=== PATIENT | female | born 1955 | race Caucasian/White ===

== ENCOUNTER → 2021-10-29 | Outpatient (CLI) | payer MEDICARE, BC ==
[2021-10-29 13:23] VITALS: BP 168/81; PULSE 81; TEMP 98.4; BMI 28.9
--- NOTE | 2021-11-12 15:21 | P.HPBAR ---
Bariatric H&P - History & Physicial H&P Date: 10/29/21 History & Physicial: Visit/CC: lap band problems Patient initial contact: Initial weight: Initial weight in pounds: Height: 5 ft 5.75 in Initial BMI: Last weight: Current weight: 80.739 kg Current weight in pounds: 178.00 Current BMI: 28.9 [place] body weight (based on NIH guidelines): 58.4 kg Excess body weight loss: The patient is a 66 year-old F who presents for Bariatric Assessment. Patient resents today for LAP-BAND adjustment. She has some complaints of dysphagia. Her current weight is 170 pounds. Past Medical History History of Any Multi-Drug Resistant Organisms: None Reported Smoking Status: Never smoker Surgical - Exam Vital Signs Temp Pulse BP 98.4 F 81 168/81 10/29/21 13:14 10/29/21 13:14 10/29/21 13:14 - General well developed, well nourished, no distress - Eyes PERRL - ENT normal pinna - Neck no masses - Respiratory normal expansion - Cardiovascular Rhythm: regular - Abdomen Abdomen: soft, non tender Bariatric Assessment & Plan Plan: Patient's LAP-BAND was adjusted. She had 1 mL removed from the band. She will follow-up in 4 weeks. Bariatric Checklist Checklist: Plan: Checklist: EGD: 1. Hiatal hernia: 2. H. Pylori: HgbA1c: Vitamin D: Smoking: Primary care physician referral: Dr. Alfonso Psychiatry clearance: Cardiology clearance: Sleep study: Diet journal: VTE risk score: VTE risk level: Rehab needs at discharge:
== END ==
LOC: BARWHC3 12:57
PROVIDERS: ATTEND Surgery
DX: E66.01 Morbid (severe) obesity due to excess calories (principal); Z46.51 Encounter for fitting and adjustment of gastric lap band
CPT/HCPCS: 99212

== ENCOUNTER → 2021-11-12 | Outpatient (CLI) | payer MEDICARE, BC ==
[2021-11-12 13:43] VITALS: BP 161/83; PULSE 84; TEMP 98; BMI 29.7
--- NOTE | 2021-11-12 14:51 | P.HPBAR ---
Bariatric H&P - History & Physicial H&P Date: 11/12/21 History & Physicial: Visit/CC: lap band f/u Patient initial contact: Initial weight: Initial weight in pounds: Height: 5 ft 5.75 in Initial BMI: Last weight: Current weight: 83.007 kg Current weight in pounds: 183.00 Current BMI: 29.7 [place] body weight (based on NIH guidelines): 58.4 kg Excess body weight loss: The patient is a 66 year-old F who presents for Bariatric Assessment. Patient resents today for bariatric follow. She's requesting a fill of her LAP-BAND. She currently is hungry. Past Medical History Past Medical History: Hypertension History of Any Multi-Drug Resistant Organisms: None Reported Past Surgical History: Bariatric Surgery, Section, Joint Replacement, Orthopedic Surgery Additional Past Surgical History / Comment(s): lap band 2010. ganga in left big toe. left knee replacement 2010. left wrist cyst removed, right thumb and finger cyst removed. right knee replacement 2019. eye surgery 2019 and cataract surgery 2019 Past Anesthesia/Blood Transfusion Reactions: Previous Problems w/ Anesthesia, Postoperative Nausea & Vomiting (PONV) Past Psychological History: No Psychological Hx Reported Smoking Status: Never smoker Past Alcohol Use History: Occasional Past Drug Use History: None Reported Surgical - Exam Vital Signs Temp Pulse BP 98 F 84 161/83 11/12/21 13:37 11/12/21 13:37 11/12/21 13:37 - General well developed, well nourished, no distress - Eyes PERRL - ENT normal pinna - Neck no masses - Respiratory normal expansion - Cardiovascular Rhythm: regular - Abdomen Abdomen: soft, non tender Bariatric Assessment & Plan Plan: Resolving morbid obesity. Patient's LAP-BAND was adjusted. She had 0.5 mL added the band. She currently is 3.5 mL Initial follow-up in 4 weeks. Bariatric Checklist Checklist: Plan: Checklist: EGD: 1. Hiatal hernia: 2. H. Pylori: HgbA1c: Vitamin D: Smoking: Primary care physician referral: Dr. Alfonso Psychiatry clearance: Cardiology clearance: Sleep study: Diet journal: VTE risk score: VTE risk level: Rehab needs at discharge:
== END ==
LOC: BARWHC3 12:54
PROVIDERS: ATTEND Surgery
DX: E66.01 Morbid (severe) obesity due to excess calories (principal); Z46.51 Encounter for fitting and adjustment of gastric lap band; Z68.29 Body mass index [BMI] 29.0-29.9, adult; I10 Essential (primary) hypertension
CPT/HCPCS: 99212

== ENCOUNTER → 2021-12-17 | Outpatient (CLI) | payer MEDICARE, BC ==
[2021-12-17 13:09] VITALS: BP 145/84; PULSE 75; RESP 16; TEMP 98.2; BMI 29.7
--- NOTE | 2021-12-17 14:31 | P.HPBAR ---
Bariatric H&P - History & Physicial H&P Date: 12/17/21 History & Physicial: Visit/CC: Band Adj/Pursuing [place]anni Patient initial contact: Initial weight: 115.666 kg Initial weight in pounds: 255.00 Height: 5 ft 5.75 in Initial BMI: 41.4 Last weight: Current weight: 83.007 kg Current weight in pounds: 183.00 Current BMI: 29.7 [place] body weight (based on NIH guidelines): 58.4 kg Excess body weight loss: 57.0% The patient is a 66 year-old F who presents for Bariatric Assessment. Patient presents today for LAP-BAND follow-up. She's requesting a fill of her band. She is currently hungry. Past Medical History Past Medical History: Hypertension History of Any Multi-Drug Resistant Organisms: None Reported Past Surgical History: Bariatric Surgery, Section, Joint Replacement, Orthopedic Surgery Additional Past Surgical History / Comment(s): lap band 2010. ganga in left big toe. left knee replacement 2010. left wrist cyst removed, right thumb and finger cyst removed. right knee replacement 2019. 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 She had 0.5 mL added to the band. She currently has 4 mL in the band. She will follow-up in 4 weeks. Patient's panniculus was documented. We'll attempt to obtain insurance authorization for panniculectomy Bariatric Checklist Checklist: Plan: Checklist: EGD: 1. Hiatal hernia: 2. H. Pylori: HgbA1c: Vitamin D: Smoking: Primary care physician referral: Dr. Alfonso Psychiatry clearance: Cardiology clearance: Sleep study: Diet journal: VTE risk score: VTE risk level: Rehab needs at discharge:
== END ==
LOC: BARWHC3 12:41
PROVIDERS: ATTEND Surgery
DX: Z98.84 Bariatric surgery status (principal); E66.9 Obesity, unspecified; Z68.29 Body mass index [BMI] 29.0-29.9, adult
CPT/HCPCS: 99211

== ENCOUNTER → 2022-01-28 | Outpatient (CLI) | payer MEDICARE, BC ==
[2022-01-28 12:58] VITALS: BP 127/82; PULSE 99; TEMP 97.8; BMI 29.5
--- NOTE | 2022-01-28 13:14 | P.HPBAR ---
Bariatric H&P - History & Physicial H&P Date: 01/28/22 History & Physicial: Visit/CC: lap band follow up Patient initial contact: Initial weight: 115.666 kg Initial weight in pounds: 255.00 Height: 5 ft 5.75 in Initial BMI: 41.4 Last weight: Current weight: 82.554 kg Current weight in pounds: 182.00 Current BMI: 29.5 [place] body weight (based on NIH guidelines): 58.4 kg Excess body weight loss: 57.8% The patient is a 66 year-old F who presents for Bariatric Assessment. Patient presents today for bariatric follow-up. She has no significant complaints. She does have issues with a chronic rash due to her panniculus. She's had some minimal GERD. Past Medical History Past Medical History: Hypertension History of Any Multi-Drug Resistant Organisms: None Reported Past Surgical History: Bariatric Surgery, Section, Joint Replacement, Orthopedic Surgery Additional Past Surgical History / Comment(s): lap band 2010. ganga in left big toe. left knee replacement 2010. left wrist cyst removed, right thumb and finger cyst removed. right knee replacement 2019. eye surgery 2019 and cataract surgery 2019 Past Anesthesia/Blood Transfusion Reactions: Previous Problems w/ Anesthesia, Postoperative Nausea & Vomiting (PONV) Past Psychological History: No Psychological Hx Reported Smoking Status: Never smoker Past Alcohol Use History: Occasional Past Drug Use History: None Reported Surgical - Exam Vital Signs Temp Pulse BP 97.8 F 99 127/82 01/28/22 12:54 01/28/22 12:54 01/28/22 12:54 - General well developed, well nourished, no distress - Eyes PERRL - ENT normal pinna - Neck no masses - Respiratory normal expansion - Cardiovascular Rhythm: regular - Abdomen Large panniculus with evidence of chronic skin irritation Abdomen: soft, non tender Bariatric Assessment & Plan Plan: Patient is doing well from a LAP-BAND standpoint. Her GERD is minimal will be observed. Patient will attempt to have authorization for panniculectomy performed. Bariatric Checklist Checklist: Plan: Checklist: EGD: 1. Hiatal hernia: 2. H. Pylori: HgbA1c: Vitamin D: Smoking: Primary care physician referral: Dr. Alfonso Psychiatry clearance: Cardiology clearance: Sleep study: Diet journal: VTE risk score: VTE risk level: Rehab needs at discharge:
== END ==
LOC: BARWHC3 12:42
PROVIDERS: ATTEND Surgery
DX: Z48.815 Encounter for surgical aftercare following surgery on the digestive system (principal); Z98.84 Bariatric surgery status; E66.01 Morbid (severe) obesity due to excess calories; Z68.29 Body mass index [BMI] 29.0-29.9, adult
CPT/HCPCS: 99211

== ENCOUNTER → 2022-04-03 | Outpatient (CLI) | payer MEDICARE, BC ==
[2022-04-03 18:31] LABS: Basophils # (A) 0.08 X 10*3/uL (0.00-0.10); Basophils % (A) 1.3 %; Eosinophils # (A) 0.21 X 10*3/uL (0.04-0.35); Eosinophils % (A) 3.5 %; HCT 43.1 % (37.2-46.3); HGB 13.5 g/dL (12.0-15.0); Immature Grans, Automated 0.2 %; Lymphocytes # (A) 2.54 X 10*3/uL (0.90-5.00); Lymphocytes % (A) 42.6 %; MCH 28.4 pg (27.0-32.0); MCHC 31.3 g/dL (32.0-37.0); MCV 90.5 fL (80.0-97.0); Mean Platelet Volume 10.8 fL (9.5-12.2); Monocytes # (A) 0.56 X 10*3/uL (0.20-1.00); Monocytes % (A) 9.4 %; NRBC Per 100 WBC 0 /100 WBCS (0.0-0.0); Neutrophils # (A) 2.56 X 10*3/uL (1.80-7.70); Platelet Count 284 X 10*3/uL (140-440); RBC 4.76 X 10*6/uL (4.10-5.20); RDW 13.7 % (11.5-14.5); WBC 5.96 X 10*3/uL (4.50-10.00)
[2022-04-03 18:33] LABS: Albumin 4.4 g/dL (3.8-4.9); Albumin/Globulin Ratio 2.13 (1.60-3.17); Anion Gap 9.9 mmol/L (10.00-18.00); BUN/Creat Ratio 13.36 Ratio (12.00-20.00); Blood Urea Nitrogen 10.1 mg/dL (9.0-27.0); Calcium 9.7 mg/dL (8.7-10.3); Carbon Dioxide 27.8 mmol/L (20.0-27.5); Globulin 2.1 g/dL (1.6-3.3); Non-African American GFR(CKD) 81.1 (60.0-200.0); Potassium 4.5 mmol/L (3.5-5.5); Total Bilirubin 0.4 mg/dL (0.30-1.20); Total Protein 6.5 g/dL (6.2-8.2)
== END | disposition home or self-care (01) ==
LOC: LABPAT 11:07
PROVIDERS: ATTEND Surgery
DX: Z01.818 Encounter for other preprocedural examination (principal); I49.1 Atrial premature depolarization; I23.1 Atrial septal defect as current complication following acute myocardial infarction; R94.31 Abnormal electrocardiogram [ECG] [EKG]
CPT/HCPCS: 80053; 85025; 93005

== ENCOUNTER → 2022-05-06 | Outpatient (CLI) | payer MEDICARE, BC ==
[2022-05-06 14:00] VITALS: BP 147/85; PULSE 78; TEMP 98.5; BMI 29.4
--- NOTE | 2022-05-21 11:00 | P.HPBAR ---
Bariatric H&P - History & Physicial H&P Date: 05/06/22 History & Physicial: Visit/CC: edmund F/U Patient initial contact: Initial weight: 115.666 kg Initial weight in pounds: 255.00 Height: 5 ft 5.75 in Initial BMI: 41.4 Last weight: Current weight: 82.1 kg Current weight in pounds: 181.00 Current BMI: 29.4 [place] body weight (based on NIH guidelines): 58.4 kg Excess body weight loss: 58.6% The patient is a 67 year-old F who presents for Bariatric Assessment. Patient resents today for panniculectomy follow-up. She's doing quite well. She's had minimal drainage from her KIM drains. Past Medical History Past Medical History: Hypertension Additional Past Medical History / Comment(s): allergies. History of Any Multi-Drug Resistant Organisms: None Reported Past Surgical History: Bariatric Surgery, Section, Joint Replacement, Orthopedic Surgery Additional Past Surgical History / Comment(s): lap band 2010. ganga in left big toe. left knee replacement 2010. left wrist cyst removed, right thumb and finger cyst removed. right knee replacement 2019. Panniculectomy 04/24/22. eye surgery 2019 and cataract surgery 2019 Past Anesthesia/Blood Transfusion Reactions: Previous Problems w/ Anesthesia, Postoperative Nausea & Vomiting (PONV) Past Psychological History: No Psychological Hx Reported Smoking Status: Never smoker Past Alcohol Use History: Occasional Past Drug Use History: None Reported Surgical - Exam Vital Signs Temp Pulse BP 98.5 F 78 147/85 05/06/22 13:56 05/06/22 13:56 05/06/22 13:56 - General well developed, well nourished, no distress - Eyes PERRL - ENT normal pinna - Neck no masses - Respiratory normal expansion - Cardiovascular Rhythm: regular - Abdomen Abdomen: soft, non tender Bariatric Assessment & Plan Plan: The patient's KIM drains removed. She'll follow-up in 4 weeks. Bariatric Checklist Checklist: Plan: Checklist: EGD: 1. Hiatal hernia: 2. H. Pylori: HgbA1c: Vitamin D: Smoking: Primary care physician referral: Dr. Alfonso Psychiatry clearance: Cardiology clearance: Sleep study: Diet journal: VTE risk score: VTE risk level: Rehab needs at discharge:
== END ==
LOC: BARWHC3 13:18
PROVIDERS: ATTEND Surgery
DX: E66.01 Morbid (severe) obesity due to excess calories (principal); I10 Essential (primary) hypertension; Z68.29 Body mass index [BMI] 29.0-29.9, adult; Z98.890 Other specified postprocedural states; Z88.0 Allergy status to penicillin
CPT/HCPCS: 99212

== ENCOUNTER → 2022-05-13 | Outpatient (CLI) | payer MEDICARE, BC ==
[2022-05-13 12:51] VITALS: BP 133/85; PULSE 77; TEMP 98.1; BMI 29.5
--- NOTE | 2022-05-21 10:45 | P.HPBAR ---
Bariatric H&P - History & Physicial H&P Date: 05/13/22 History & Physicial: Visit/CC: edmund F/U Patient initial contact: Initial weight: 115.666 kg Initial weight in pounds: 255.00 Height: 5 ft 5.75 in Initial BMI: 41.4 Last weight: Current weight: 82.554 kg Current weight in pounds: 182.00 Current BMI: 29.5 [place] body weight (based on NIH guidelines): 58.4 kg Excess body weight loss: 57.8% Patient resents today for bariatric follow-up. Patient has undergone recently. Patient has had some minimal GERD and dysphagia. Her BMI is 29. She states that her KIM drains have decreased in output. Past Medical History Past Medical History: Hypertension Additional Past Medical History / Comment(s): allergies. History of Any Multi-Drug Resistant Organisms: None Reported Past Surgical History: Bariatric Surgery, Section, Joint Replacement, Orthopedic Surgery Additional Past Surgical History / Comment(s): lap band 2010. ganga in left big toe. left knee replacement 2010. left wrist cyst removed, right thumb and finger cyst removed. right knee replacement 2019. Panniculectomy 04/24/22. eye surgery 2019 and cataract surgery 2019 Past Anesthesia/Blood Transfusion Reactions: Previous Problems w/ Anesthesia, Postoperative Nausea & Vomiting (PONV) Past Psychological History: No Psychological Hx Reported Smoking Status: Never smoker Past Alcohol Use History: Occasional Past Drug Use History: None Reported Surgical - Exam Vital Signs Temp Pulse BP 98.1 F 77 133/85 05/13/22 12:44 05/13/22 12:44 05/13/22 12:44 - General well developed, well nourished, no distress - Eyes PERRL - ENT normal pinna - Neck no masses - Respiratory normal expansion - Cardiovascular Rhythm: regular - Abdomen Abdomen: soft, non tender Bariatric Assessment & Plan Plan: The patient's KIM drains were removed. Her GERD is minimal observed. She'll follow-up in 4 weeks. Bariatric Checklist Checklist: Plan: Checklist: EGD: 1. Hiatal hernia: 2. H. Pylori: HgbA1c: Vitamin D: Smoking: Primary care physician referral: Dr. Alfonso Psychiatry clearance: Cardiology clearance: Sleep study: Diet journal: VTE risk score: VTE risk level: Rehab needs at discharge:
== END ==
LOC: BARWHC3 12:21
PROVIDERS: ATTEND Surgery
DX: E66.01 Morbid (severe) obesity due to excess calories (principal); K21.9 Gastro-esophageal reflux disease without esophagitis; I10 Essential (primary) hypertension; Z68.29 Body mass index [BMI] 29.0-29.9, adult; Z88.0 Allergy status to penicillin
CPT/HCPCS: 99212

== ENCOUNTER → 2022-06-10 | Outpatient (CLI) | payer MEDICARE, BC ==
[2022-06-10 13:48] VITALS: BP 142/76; PULSE 72; TEMP 98.1; BMI 29.4
--- NOTE | 2022-06-10 13:48 | P.HPBAR ---
Bariatric H&P - History & Physicial H&P Date: 06/10/22 History & Physicial: Visit/CC: Patient initial contact: Initial weight: 115.666 kg Initial weight in pounds: Height: 5 ft 5.75 in Initial BMI: Last weight: Current weight: 82.1 kg Current weight in pounds: Current BMI: [place] body weight (based on NIH guidelines): Excess body weight loss: The patient is a 67 year-old F who presents for Bariatric Assessment.patient presents today for bariatric follow-up. She has minimal complaints of GERD. She is healing well from her previous panniculectomy about 2 months ago. She's had some complaints of right upper quadrant pain. Past Medical History Past Medical History: Hypertension Additional Past Medical History / Comment(s): allergies. History of Any Multi-Drug Resistant Organisms: None Reported Past Surgical History: Bariatric Surgery, Section, Joint Replacement, Orthopedic Surgery Additional Past Surgical History / Comment(s): lap band 2010. ganga in left big toe. left knee replacement 2010. left wrist cyst removed, right thumb and finger cyst removed. right knee replacement 2019. Panniculectomy 04/24/22. eye surgery 2019 and cataract surgery 2019 Past Anesthesia/Blood Transfusion Reactions: Previous Problems w/ Anesthesia, Postoperative Nausea & Vomiting (PONV) Past Psychological History: No Psychological Hx Reported Smoking Status: Never smoker Past Alcohol Use History: Occasional Past Drug Use History: None Reported Surgical - Exam - General well developed, well nourished, no distress - Eyes PERRL - ENT normal pinna, normal nares - Neck no masses - Respiratory normal expansion - Cardiovascular Rhythm: regular - Abdomen Abdomen: soft, non tender Bariatric Assessment & Plan Plan: patient's GERD is minimal bleeding observed. She'll be scheduled for an ultrasound developed cholelithiasis for her right upper quadrant pain. She'll follow-up in 4 weeks. Bariatric Checklist Checklist: Plan: Checklist: EGD: 1. Hiatal hernia: 2. H. Pylori: HgbA1c: Vitamin D: Smoking: Primary care physician referral: Dr. Alfonso Psychiatry clearance: Cardiology clearance: Sleep study: Diet journal: VTE risk score: VTE risk level: Rehab needs at discharge:
== END ==
LOC: BARWHC3 12:51
PROVIDERS: ATTEND Surgery
DX: E66.01 Morbid (severe) obesity due to excess calories (principal); K21.9 Gastro-esophageal reflux disease without esophagitis; I10 Essential (primary) hypertension; Z88.0 Allergy status to penicillin; R10.11 Right upper quadrant pain; Z98.890 Other specified postprocedural states
CPT/HCPCS: 99211

== ENCOUNTER → 2022-06-25 | Outpatient (CLI) | payer MEDICARE, BC ==
--- NOTE | 2022-06-25 16:40 | US ---
EXAMINATION TYPE: US gallbladder DATE OF EXAM: 06/25/2022 COMPARISON: NONE CLINICAL INDICATION: Female, 67 years old with history of R10.11 RIGHT UPPER QUADRANT PAIN; ruq pain after abdominal surgery 8 weeks ago TECHNIQUE: Multiple sonographic images of the right upper quadrant are obtained. FINDINGS: EXAM MEASUREMENTS: Liver Length: 15.5 cm Gallbladder Wall: 0.2 cm CBD: 0.4 cm Right Kidney: 8.7 x 3.5 x 4.1 cm Pancreas: not seen due to bowel Liver: intercostal view Gallbladder: wnl Evidence for sonographic Mansfield's sign: yes CBD: wnl Right Kidney: bowel gas limits study, estimated size due to bowel gas obscuring IMPRESSION: Gallbladder is mildly distended without wall thickening or pericholecystic fluid. The market development analyst did suggest a positive sonographic Mansfield sign correlate with nuclear medicine HIDA scan.
== END | disposition home or self-care (01) ==
LOC: RADUSWWP 15:15
PROVIDERS: ATTEND Surgery
DX: K82.8 Other specified diseases of gallbladder (principal); R10.11 Right upper quadrant pain
CPT/HCPCS: 76705

== ENCOUNTER → 2022-07-15 | Outpatient (CLI) | payer MEDICARE, BC ==
--- NOTE | 2022-07-15 09:07 | NM ---
Nuclear medicine hepatobiliary scan. HISTORY: Pain. DOSAGE: The patient received 8 0z Ensure plus and 4.5 mCi of Technetium 99m Choletec. FINDINGS: There is normal hepatic extraction. The gallbladder is seen by 15 minutes. There is bilia ry to bowel clearance by 50 minutes. Ejection fraction is 91%. IMPRESSION: 1. No evidence of cholecystitis. 2. Ejection fraction of 91% can occasionally be associated with hyperdynamic gallbladder.
== END | disposition home or self-care (01) ==
LOC: RADNMMAIN 06:52
PROVIDERS: ATTEND Surgery
DX: R10.11 Right upper quadrant pain (principal)
CPT/HCPCS: 78227; A9537; J2805

== ENCOUNTER → 2022-07-15 | Outpatient (CLI) | payer MEDICARE, BC ==
[2022-07-15 13:05] VITALS: BP 143/84; PULSE 82; TEMP 98.1; BMI 29.9
--- NOTE | 2022-08-06 11:41 | P.HPBAR ---
Bariatric H&P - History & Physicial H&P Date: 07/15/22 History & Physicial: Visit/CC: hida scan F/U Patient initial contact: Initial weight: 115.666 kg Initial weight in pounds: 255.00 Height: 5 ft 5.75 in Initial BMI: 41.4 Last weight: Current weight: 83.461 kg Current weight in pounds: 184.00 Current BMI: 29.9 [place] body weight (based on NIH guidelines): 58.4 kg Excess body weight loss: 56.2% The patient is a 67 year-old F who presents for Bariatric Assessment. Patient presents today for follow-up. She is had complaints of pain. Her HIDA scan shows evidence of biliary dysfunction. Past Medical History Past Medical History: Hypertension Additional Past Medical History / Comment(s): allergies. History of Any Multi-Drug Resistant Organisms: None Reported Past Surgical History: Bariatric Surgery, Section, Joint Replacement, Orthopedic Surgery Additional Past Surgical History / Comment(s): lap band 2010. ganga in left big toe. left knee replacement 2010. left wrist cyst removed, right thumb and finger cyst removed. right knee replacement 2019. Panniculectomy 04/24/22. eye surgery 2019 and cataract surgery 2019 Past Anesthesia/Blood Transfusion Reactions: Previous Problems w/ Anesthesia, Postoperative Nausea & Vomiting (PONV) Past Psychological History: No Psychological Hx Reported Smoking Status: Never smoker Past Alcohol Use History: Occasional Past Drug Use History: None Reported Surgical - Exam Vital Signs Temp Pulse BP 98.1 F 82 143/84 07/15/22 13:02 07/15/22 13:02 07/15/22 13:02 - General well developed, well nourished, no distress - Eyes PERRL - ENT normal pinna - Neck no masses - Respiratory normal expansion - Cardiovascular Rhythm: regular - Abdomen Abdomen: soft, non tender Bariatric Assessment & Plan Plan: Right upper quadrant Biliary dysfunction Patient will be scheduled for laparoscopic cholecystectomy. Bariatric Checklist Checklist: Plan: Checklist: EGD: 1. Hiatal hernia: 2. H. Pylori: HgbA1c: Vitamin D: Smoking: Primary care physician referral: Dr. Alfonso Psychiatry clearance: Cardiology clearance: Sleep study: Diet journal: VTE risk score: VTE risk level: Rehab needs at discharge:
== END ==
LOC: BARWHC3 12:42
PROVIDERS: ATTEND Surgery
DX: E66.01 Morbid (severe) obesity due to excess calories (principal); I10 Essential (primary) hypertension; Z68.29 Body mass index [BMI] 29.0-29.9, adult; R10.11 Right upper quadrant pain; K83.9 Disease of biliary tract, unspecified; Z98.890 Other specified postprocedural states; Z88.0 Allergy status to penicillin
CPT/HCPCS: 99211

== ENCOUNTER 2022-08-05 06:01 | Day surgery (SDC) | payer MEDICARE, BC ==
[2022-08-01 13:43] VITALS: BMI 29.1
[2022-08-05] MEDS ORDERED: ONDANSETRON 4 MG/2 ML VIAL IVP ONE (06:40)
[2022-08-05] MEDS ORDERED: LACTATED RINGERS 1,000 ML IV SCH (06:40)
[2022-08-05] MEDS ORDERED: LIDOCAINE 1% (10MG/ML) FOR IV START INTRADERMA PRN (06:40)
[2022-08-05] MEDS ORDERED: HYDROmorphone 0.5 MG/0.5 ML SYRINGE IVP PRN (06:40)
[2022-08-05] MEDS ORDERED: DEXAMETHASONE SOD PHOSPHATE 4 MG/ML 1 ML VIAL IV ONE (06:40)
[2022-08-05] MEDS ORDERED: MIDAZOLAM 2 MG/2 ML VIAL IV PRN (06:40)
[2022-08-05] MEDS ORDERED: HEPARIN SODIUM,PORCINE/PF 5,000 UNIT/0.5 ML SYRINGE SQ ONE (07:15)
[2022-08-05] MEDS ORDERED: SCOPOLAMINE 1 MG/72 HR PATCH TRANSDERM ONE (07:18)
[2022-08-05] MEDS ORDERED: ROCURONIUM 10 MG/ML (5 ML VIAL) IV ONE (07:40)
[2022-08-05] MEDS ORDERED: KETOROLAC 15 MG/ML 1 ML VIAL ONE (07:40)
[2022-08-05] MEDS ORDERED: fentaNYL (PF) 50 MCG/ML 2 ML AMP ONE (07:40)
[2022-08-05] MEDS ORDERED: GLYCOPYRROLATE 0.2 MG/ML 2 ML VIAL ONE (07:40)
[2022-08-05] MEDS ORDERED: PROPOFOL 10 MG/ML 20 ML VIAL IV ONE (07:40)
[2022-08-05] MEDS ORDERED: PHENYLEPHRINE-0.9% NACL SYG 1,000 MCG/10 ML SYRINGE ONE (07:40)
[2022-08-05] MEDS ORDERED: SUCCINYLCHOLINE CHLORIDE 200 MG/10 ML VIAL IV ONE (07:40)
[2022-08-05] MEDS ORDERED: MIDAZOLAM 2 MG/2 ML VIAL ONE (07:40)
[2022-08-05] MEDS ORDERED: NEOSTIGMINE 1 MG/ML 10 ML VIAL ONE (07:40)
[2022-08-05] MEDS ORDERED: BUPIVACAINE (PF) 0.25% 30 ML VIAL SQ ONE ×2 (07:41→08:07)
[2022-08-05 08:41] VITALS: TEMP 97.2
--- NOTE | 2022-08-05 08:44 | P.GSHP ---
History of Present Illness H&P Date: 08/05/22 Chief Complaint: Right upper quadrant pain This a 59-year-old female who presents today for laparoscopic cholestatic. Patient's had complaints of right quadrant pain. Her recent HIDA scan shows a hyperdynamic gallbladder with an elevated ejection fraction. Past Medical History Past Medical History: Hypertension Additional Past Medical History / Comment(s): Allergies. History of Any Multi-Drug Resistant Organisms: None Reported Past Surgical History: Bariatric Surgery, Section, Joint Replacement, Orthopedic Surgery Additional Past Surgical History / Comment(s): Lap band 2010, ganga in left big toe, bilateral knee replacements, left wrist cyst removed, right thumb and finger cyst removed, panniculectomy/incisional hernia repair 04/24/22, eye surgery, cataract surgery. Past Anesthesia/Blood Transfusion Reactions: Previous Problems w/ Anesthesia, Motion Sickness, Postoperative Nausea & Vomiting (PONV) Additional Past Anesthesia/Blood Transfusion Reaction / Comment(s): Slow to wake up from anesthesia. Past Psychological History: No Psychological Hx Reported Smoking Status: Never smoker Past Alcohol Use History: Occasional Past Drug Use History: None Reported - Past Family History Father Family Medical History: Cancer Additional Family Medical History / Comment(s): Lung cancer. Medications and Allergies Home Medications Medication Instructions Recorded Confirmed Type Cetirizine HCl [Zyrtec] 10 mg PO DAILY 10/29/21 08/01/22 History Zolpidem [Ambien] 5 mg PO HS PRN 10/29/21 08/01/22 History lisinopriL [Zestril] 10 mg PO QAM 10/29/21 08/01/22 History Cholecalciferol [Vitamin D3 (25 100 mcg PO DAILY 04/10/22 08/01/22 History Mcg = 1000 Iu)] Allergies Allergy/AdvReac Type Severity Reaction Status Date / Time Penicillins Allergy Anaphylaxis Verified 08/05/22 06:45 Surgical - Exam Vital Signs Temp Pulse Resp BP Pulse Ox 97.5 F L 73 16 142/86 100 08/05/22 06:47 08/05/22 06:47 08/05/22 06:47 08/05/22 06:47 08/05/22 06:47 - General well developed, well nourished, no distress - Eyes PERRL - ENT normal pinna - Neck no masses - Respiratory normal expansion - Cardiovascular Rhythm: regular - Abdomen Abdomen: soft, non tender Assessment and Plan Assessment: Cholecystitis. We'll perform laparoscopic cholecystectomy
--- NOTE | 2022-08-05 08:45 | P.OP ---
Date of Procedure: 08/05/22 Preoperative Diagnosis: Cholecystitis Postoperative Diagnosis: Cholecystitis Procedure(s) Performed: Laparoscopic cholecystectomy Anesthesia: YG Surgeon: Mark Weinberg Estimated Blood Loss (ml): 5 Pathology: other (Gallbladder) Condition: stable Disposition: PACU Description of Procedure: The patient was placed on the operating table. The patient received a general endotracheal tube anesthesia. The patients abdomen was prepped and draped in the usual sterile fashion. Through an infraumbilical stab incision, the fascia of the anterior abdominal wall was grasped with a pair of Kochers and then the Veress needle was placed in the peritoneal cavity. Position of the Veress needle was confirmed with positive drop test. The abdomen was then insufflated. After adequate insufflation, the 10 mm trocar was placed in the peritoneal cavity. Following this the laparoscope was placed in the peritoneal cavity. The patient was placed in the head-up, right side up position and then a 5 mm trocar was placed in the right lateral and right subcostal position under direct visualization. A 8 mm trocar was placed in the epigastric position. The gallbladder was grasped in the fundus and infundibulum. Traction on the gallbladder was placed in the lateral and the cephalad positions. The triangle of Calot was visualized.. The cystic duct was bluntly dissected until the union of the cystic duct and common bile duct was seen. A critical view of safety was achieved. The cystic duct was then divided and sealed with the Harmonic scissors. A PDS Endoloop was then placed throughout the cystic duct stump. The cystic artery divided and sealed with the Harmonic scissors. The gallbladder was then removed from the liver bed using Harmonic scissors. The gallbladder was then extracted through the epigastric port site. Operative field was checked for any bleeding spots and Harmonic scissors was used to coagulate the liver bed. The abdomen was irrigated. The trocars were removed. The skin was closed using interrupted 3-0 Vicryl suture. Dermabond dressing were applied. The patient tolerated the procedure well.
[2022-08-05] MEDS ORDERED: ONDANSETRON 4 MG/2 ML VIAL ONE (09:42)
[2022-08-05 10:08] VITALS: BP 161/89; PULSE 63; RESP 17
== END 2022-08-05 11:18 | disposition home or self-care (01) ==
LOC: OR 06:01
PROVIDERS: ATTEND Surgery
DX: K81.1 Chronic cholecystitis (principal); I10 Essential (primary) hypertension; F10.20 Alcohol dependence, uncomplicated; Z98.84 Bariatric surgery status; Z98.890 Other specified postprocedural states; Z88.0 Allergy status to penicillin; Z79.899 Other long term (current) drug therapy
CPT/HCPCS: 47562; J2250; J0330; J1100; J2710; J0690; J2405; J3010; J1885; J2370; J2704; J1644; 88304

== ENCOUNTER → 2022-08-19 | Outpatient (CLI) | payer MEDICARE, BC ==
[2022-08-19 13:09] VITALS: BP 157/80; PULSE 85; TEMP 98.1; BMI 29.2
--- NOTE | 2022-09-10 08:44 | P.HPBAR ---
Bariatric H&P - History & Physicial H&P Date: 08/19/22 History & Physicial: Visit/CC: christa sandoval F/U Patient initial contact: Initial weight: 115.666 kg Initial weight in pounds: 255.00 Height: 5 ft 5.75 in Initial BMI: 41.4 Last weight: Current weight: 81.647 kg Current weight in pounds: 180.00 Current BMI: 29.2 [employer] body weight (based on NIH guidelines): 58.4 kg Excess body weight loss: 59.4% The patient is a 67 year-old F who presents for Bariatric Assessment. Patient resents today for postoperative laparoscopically cholecystectomy follow-up. She is doing quite well. She has minimal complaints of pain. Past Medical History Past Medical History: Hypertension Additional Past Medical History / Comment(s): Allergies. History of Any Multi-Drug Resistant Organisms: None Reported Past Surgical History: Bariatric Surgery, Section, Cholecystectomy, Joint Replacement, Orthopedic Surgery Additional Past Surgical History / Comment(s): Lap band 2010, ganga in left big toe, bilateral knee replacements, left wrist cyst removed, right thumb and finger cyst removed, panniculectomy/incisional hernia repair 04/24/22, eye surgery, cataract surgery. Past Anesthesia/Blood Transfusion Reactions: Previous Problems w/ Anesthesia, Motion Sickness, Postoperative Nausea & Vomiting (PONV) Additional Past Anesthesia/Blood Transfusion Reaction / Comm: Slow to wake up from anesthesia. Past Psychological History: No Psychological Hx Reported Smoking Status: Never smoker Past Alcohol Use History: Occasional Past Drug Use History: None Reported - Past Family History Father Family Medical History: Cancer Additional Family Medical History / Comment(s): Lung cancer. Surgical - Exam Vital Signs Temp Pulse BP 98.1 F 85 157/80 08/19/22 13:04 08/19/22 13:04 08/19/22 13:04 - General well developed, no distress - Abdomen Abdomen: soft, non tender Bariatric Assessment & Plan Plan: Patient's a well postoperatively laparoscopic cholestatic. She'll follow-up as needed. Bariatric Checklist Checklist: Plan: Checklist: EGD: 1. Hiatal hernia: 2. H. Pylori: HgbA1c: Vitamin D: Smoking: Primary care physician referral: Dr. Alfnoso Psychiatry clearance: Cardiology clearance: Sleep study: Diet journal: VTE risk score: VTE risk level: Rehab needs at discharge:
== END ==
LOC: BARWHC3 12:41
PROVIDERS: ATTEND Surgery
DX: E66.01 Morbid (severe) obesity due to excess calories (principal); I10 Essential (primary) hypertension; Z68.29 Body mass index [BMI] 29.0-29.9, adult; Z98.84 Bariatric surgery status; Z46.51 Encounter for fitting and adjustment of gastric lap band; Z88.0 Allergy status to penicillin; Z79.899 Other long term (current) drug therapy
CPT/HCPCS: 99211

== ENCOUNTER → 2022-09-23 | Outpatient (CLI) | payer MEDICARE, BC ==
[2022-09-23 13:07] VITALS: BP 130/73; PULSE 74; TEMP 97.7; BMI 29.6
--- NOTE | 2022-09-27 10:03 | P.HPBAR ---
Bariatric H&P - History & Physicial H&P Date: 09/23/22 History & Physicial: Visit/CC: christa sandoval F/U Patient initial contact: Initial weight: 115.666 kg Initial weight in pounds: 255.00 Height: 5 ft 5.75 in Initial BMI: 41.4 Last weight: Current weight: 82.735 kg Current weight in pounds: 182.40 Current BMI: 29.6 [place] body weight (based on NIH guidelines): 58.4 kg Excess body weight loss: 57.5% The patient is a 67 year-old F who presents for Bariatric Assessment. Patient presents today for [place] follow-up. She states she feels well. Her weight is increased slowly. Said minimal GERD. She states she feels better since her laparoscopic cholecystectomy last month. Past Medical History Past Medical History: Hypertension Additional Past Medical History / Comment(s): Allergies. History of Any Multi-Drug Resistant Organisms: None Reported Past Surgical History: Bariatric Surgery, Section, Cholecystectomy, Joint Replacement, Orthopedic Surgery Additional Past Surgical History / Comment(s): Lap band 2011, ganga in left big toe, bilateral knee replacements, left wrist cyst removed, right thumb and finger cyst removed, panniculectomy/incisional hernia repair 04/24/22, eye surgery, cataract surgery. Past Anesthesia/Blood Transfusion Reactions: Previous Problems w/ Anesthesia, Motion Sickness, Postoperative Nausea & Vomiting (PONV) Additional Past Anesthesia/Blood Transfusion Reaction / Comm: Slow to wake up from anesthesia. Past Psychological History: No Psychological Hx Reported Smoking Status: Never smoker Past Alcohol Use History: Occasional Past Drug Use History: None Reported - Past Family History Father Family Medical History: Cancer Additional Family Medical History / Comment(s): Lung cancer. Surgical - Exam Vital Signs Temp Pulse BP 97.7 F 74 130/73 09/23/22 13:01 09/23/22 13:01 09/23/22 13:01 - General well developed, well nourished, no distress - Eyes PERRL - ENT normal pinna - Neck no masses - Respiratory normal expansion - Abdomen Abdomen: soft, non tender Bariatric Assessment & Plan Plan: Patient's GERD is minimal old observed temperature follow-up in 4 weeks. Bariatric Checklist Checklist: Plan: Checklist: EGD: 1. Hiatal hernia: 2. H. Pylori: HgbA1c: Vitamin D: Smoking: Primary care physician referral: Dr. Alfonso Psychiatry clearance: Cardiology clearance: Sleep study: Diet journal: VTE risk score: VTE risk level: Rehab needs at discharge:
== END ==
LOC: BARWHC3 12:55
PROVIDERS: ATTEND Surgery
DX: K21.9 Gastro-esophageal reflux disease without esophagitis (principal); E66.01 Morbid (severe) obesity due to excess calories; I10 Essential (primary) hypertension; Z98.84 Bariatric surgery status; Z68.29 Body mass index [BMI] 29.0-29.9, adult; Z46.51 Encounter for fitting and adjustment of gastric lap band; Z88.0 Allergy status to penicillin; Z79.899 Other long term (current) drug therapy; Z48.815 Encounter for surgical aftercare following surgery on the digestive system
CPT/HCPCS: 99211

== ENCOUNTER → 2022-12-09 | Outpatient (CLI) | payer MEDICARE, BC ==
[2022-12-09 10:48] VITALS: BP 142/85; PULSE 71; TEMP 98.2; BMI 29.4
--- NOTE | 2022-12-09 18:10 | P.HPBAR ---
Bariatric H&P - History & Physicial H&P Date: 12/09/22 History & Physicial: Visit/CC: lap band Patient initial contact: Initial weight: 115.666 kg Initial weight in pounds: 255.00 Height: 5 ft 5.75 in Initial BMI: 41.4 Last weight: Current weight: 82.1 kg Current weight in pounds: 181.00 Current BMI: 29.4 [place] body weight (based on NIH guidelines): 58.4 kg Excess body weight loss: 58.6% The patient is a 67 year-old F who presents for Bariatric Assessment. Patient resents today for LAP-BAND follow-up. She is currently hungry and is requesting a fill of her LAP-BAND. Past Medical History Past Medical History: Hypertension Additional Past Medical History / Comment(s): Allergies. History of Any Multi-Drug Resistant Organisms: None Reported Past Surgical History: Bariatric Surgery, Section, Cholecystectomy, Joint Replacement, Orthopedic Surgery Additional Past Surgical History / Comment(s): Lap band 2010, ganga in left big toe, bilateral knee replacements, left wrist cyst removed, right thumb and finger cyst removed, panniculectomy/incisional hernia repair 04/24/22, eye surgery, cataract surgery. Past Anesthesia/Blood Transfusion Reactions: Previous Problems w/ Anesthesia, Motion Sickness, Postoperative Nausea & Vomiting (PONV) Additional Past Anesthesia/Blood Transfusion Reaction / Comm: Slow to wake up from anesthesia. Past Psychological History: No Psychological Hx Reported Smoking Status: Never smoker Past Alcohol Use History: Occasional Past Drug Use History: None Reported - Past Family History Father Family Medical History: Cancer Additional Family Medical History / Comment(s): Lung cancer. Surgical - Exam Vital Signs Temp Pulse BP 98.2 F 71 142/85 12/09/22 10:33 12/09/22 10:33 12/09/22 10:33 - General well developed, well nourished, no distress - Eyes PERRL - ENT normal pinna - Neck no masses - Respiratory normal expansion - Cardiovascular Rhythm: regular - Abdomen Abdomen: soft, non tender Bariatric Assessment & Plan Plan: Patient LAP-BAND was just. She had 1 mL in the band. She currently has 4.5 mL in the band. Bariatric Checklist Checklist: Plan: Checklist: EGD: 1. Hiatal hernia: 2. H. Pylori: HgbA1c: Vitamin D: Smoking: Primary care physician referral: Dr. Alfonso Psychiatry clearance: Cardiology clearance: Sleep study: Diet journal: VTE risk score: VTE risk level: Rehab needs at discharge:
== END ==
LOC: BARWHC3 10:23
PROVIDERS: ATTEND Surgery
DX: E66.01 Morbid (severe) obesity due to excess calories (principal); Z98.84 Bariatric surgery status; Z68.29 Body mass index [BMI] 29.0-29.9, adult; I10 Essential (primary) hypertension; Z46.51 Encounter for fitting and adjustment of gastric lap band; Z88.0 Allergy status to penicillin; Z79.899 Other long term (current) drug therapy
CPT/HCPCS: 99212

== ENCOUNTER → 2022-12-10 | Outpatient (CLI) | payer MEDICARE, BC ==
[2022-12-10 11:41] VITALS: BMI 28.5
[2022-12-10 11:58] VITALS: BP 113/75; PULSE 106; TEMP 97.7
--- NOTE | 2022-12-10 13:22 | P.HPBAR ---
Bariatric H&P - History & Physicial H&P Date: 12/10/22 History & Physicial: Visit/CC: lap band Patient initial contact: Initial weight: 115.666 kg Initial weight in pounds: 255.00 Height: 5 ft 5.75 in Initial BMI: 41.4 Last weight: Current weight: 79.605 kg Current weight in pounds: 175.50 Current BMI: 28.5 [place] body weight (based on NIH guidelines): 58.4 kg Excess body weight loss: 62.9% The patient is a 67 year-old F who presents for Bariatric Assessment. Patient has complaints dysphagia after recent LAP-BAND fill. She is requesting her band readjusted. Past Medical History Past Medical History: Hypertension Additional Past Medical History / Comment(s): Allergies. History of Any Multi-Drug Resistant Organisms: None Reported Past Surgical History: Bariatric Surgery, Section, Cholecystectomy, Joint Replacement, Orthopedic Surgery Additional Past Surgical History / Comment(s): Lap band 2010, ganga in left big toe, bilateral knee replacements, left wrist cyst removed, right thumb and finger cyst removed, panniculectomy/incisional hernia repair 04/24/22, eye surgery, cataract surgery. Past Anesthesia/Blood Transfusion Reactions: Previous Problems w/ Anesthesia, Motion Sickness, Postoperative Nausea & Vomiting (PONV) Additional Past Anesthesia/Blood Transfusion Reaction / Comm: Slow to wake up from anesthesia. Past Psychological History: No Psychological Hx Reported Smoking Status: Never smoker Past Alcohol Use History: Occasional Past Drug Use History: None Reported - Past Family History Father Family Medical History: Cancer Additional Family Medical History / Comment(s): Lung cancer. Surgical - Exam Vital Signs Temp Pulse BP 97.7 F 106 H 113/75 12/10/22 11:25 12/10/22 11:25 12/10/22 11:25 - General well developed, well nourished, no distress - Eyes PERRL - ENT normal pinna - Neck no masses - Respiratory normal expansion - Cardiovascular Rhythm: regular - Abdomen Abdomen: soft, non tender Bariatric Assessment & Plan Plan: Patient had 1 mL removed the band. She currently is 5 mL in the band. She'll follow-up in 4 weeks. Bariatric Checklist Checklist: Plan: Checklist: EGD: 1. Hiatal hernia: 2. H. Pylori: HgbA1c: Vitamin D: Smoking: Primary care physician referral: Dr. Alfonso Psychiatry clearance: Cardiology clearance: Sleep study: Diet journal: VTE risk score: VTE risk level: Rehab needs at discharge:
== END ==
LOC: BARWHC3 11:15
PROVIDERS: ATTEND Surgery
DX: E66.01 Morbid (severe) obesity due to excess calories (principal); I10 Essential (primary) hypertension; Z46.51 Encounter for fitting and adjustment of gastric lap band; Z98.84 Bariatric surgery status; Z88.0 Allergy status to penicillin; Z79.899 Other long term (current) drug therapy; Z68.28 Body mass index [BMI] 28.0-28.9, adult
CPT/HCPCS: 99212

== ENCOUNTER → 2023-01-06 | Outpatient (CLI) | payer MEDICARE, BC ==
[2023-01-06 10:34] VITALS: BP 161/93; PULSE 62; TEMP 97.6; BMI 29.4
--- NOTE | 2023-01-06 11:55 | P.HPBAR ---
Bariatric H&P - History & Physicial H&P Date: 01/06/23 History & Physicial: Visit/CC: lap band Patient initial contact: Initial weight: 115.666 kg Initial weight in pounds: 255.00 Height: 5 ft 5.75 in Initial BMI: 41.4 Last weight: Current weight: 82.1 kg Current weight in pounds: 181.00 Current BMI: 29.4 [place] body weight (based on NIH guidelines): 58.4 kg Excess body weight loss: 58.6% The patient is a 67 year-old F who presents for Bariatric Assessment. The patient is hungry she's requesting a fill. Past Medical History Past Medical History: Hypertension Additional Past Medical History / Comment(s): Allergies. History of Any Multi-Drug Resistant Organisms: None Reported Past Surgical History: Bariatric Surgery, Section, Cholecystectomy, Joint Replacement, Orthopedic Surgery Additional Past Surgical History / Comment(s): Lap band 2010, ganga in left big toe, bilateral knee replacements, left wrist cyst removed, right thumb and finger cyst removed, panniculectomy/incisional hernia repair 04/24/22, eye surgery, cataract surgery. Past Anesthesia/Blood Transfusion Reactions: Previous Problems w/ Anesthesia, Motion Sickness, Postoperative Nausea & Vomiting (PONV) Additional Past Anesthesia/Blood Transfusion Reaction / Comm: Slow to wake up from anesthesia. Past Psychological History: No Psychological Hx Reported Smoking Status: Never smoker Past Alcohol Use History: Occasional Past Drug Use History: None Reported - Past Family History Father Family Medical History: Cancer Additional Family Medical History / Comment(s): Lung cancer. Surgical - Exam Vital Signs Temp Pulse BP 97.6 F 62 161/93 01/06/23 10:23 01/06/23 10:23 01/06/23 10:23 - General well developed, well nourished - Eyes PERRL - ENT normal pinna - Neck no masses - Respiratory normal expansion - Cardiovascular Rhythm: regular - Abdomen Abdomen: soft, non tender Bariatric Assessment & Plan Plan: Patient LAP-BAND was just that she has 0.3 mL added to the band. She currently has 5.3 mL in the band. She'll follow-up in 4 weeks. Bariatric Checklist Checklist: Plan: Checklist: EGD: 1. Hiatal hernia: 2. H. Pylori: HgbA1c: Vitamin D: Smoking: Primary care physician referral: Dr. Alfonso Psychiatry clearance: Cardiology clearance: Sleep study: Diet journal: VTE risk score: VTE risk level: Rehab needs at discharge:
== END ==
LOC: BARWHC3 10:17
PROVIDERS: ATTEND Surgery
DX: E66.01 Morbid (severe) obesity due to excess calories (principal); I10 Essential (primary) hypertension; Z46.51 Encounter for fitting and adjustment of gastric lap band; Z98.84 Bariatric surgery status; Z88.0 Allergy status to penicillin; Z79.899 Other long term (current) drug therapy; Z68.29 Body mass index [BMI] 29.0-29.9, adult
CPT/HCPCS: 99212

== ENCOUNTER → 2023-01-13 | Outpatient (CLI) | payer MEDICARE, BC ==
[2023-01-13 10:39] VITALS: BP 165/82; PULSE 73; TEMP 98.1; BMI 29.1
--- NOTE | 2023-01-15 08:19 | P.HPBAR ---
Bariatric H&P - History & Physicial H&P Date: 01/13/23 History & Physicial: Visit/CC: lap band follow up Patient initial contact: Initial weight: 115.666 kg Initial weight in pounds: 255.00 Height: 5 ft 5.75 in Initial BMI: 41.4 Last weight: Current weight: 81.193 kg Current weight in pounds: 179.00 Current BMI: 29.1 [place] body weight (based on NIH guidelines): 58.4 kg Excess body weight loss: 60.1% The patient is a 67 year-old F who presents for Bariatric Assessment. Patient presents today for follow-up. She's had some minimal amounts of dysphagia. She is requesting fluid removed from her band. Past Medical History Past Medical History: Hypertension Additional Past Medical History / Comment(s): Allergies. History of Any Multi-Drug Resistant Organisms: None Reported Past Surgical History: Bariatric Surgery, Section, Cholecystectomy, Joint Replacement, Orthopedic Surgery Additional Past Surgical History / Comment(s): Lap band 2010, ganga in left big toe, bilateral knee replacements, left wrist cyst removed, right thumb and finger cyst removed, panniculectomy/incisional hernia repair 04/24/22, eye surgery, cataract surgery. Past Anesthesia/Blood Transfusion Reactions: Previous Problems w/ Anesthesia, Motion Sickness, Postoperative Nausea & Vomiting (PONV) Additional Past Anesthesia/Blood Transfusion Reaction / Comm: Slow to wake up from anesthesia. Past Psychological History: No Psychological Hx Reported Smoking Status: Never smoker Past Alcohol Use History: Occasional Past Drug Use History: None Reported - Past Family History Father Family Medical History: Cancer Additional Family Medical History / Comment(s): Lung cancer. Surgical - Exam Vital Signs Temp Pulse BP 98.1 F 73 165/82 01/13/23 10:30 01/13/23 10:30 01/13/23 10:30 - General well developed, well nourished, no distress - Eyes PERRL - ENT normal pinna - Neck no masses - Abdomen Abdomen: soft, non tender Bariatric Assessment & Plan Plan: Patient's LAP-BAND was accessed. 0.3 mL removed from her band. She denies 5 mL in the band. She'll follow-up in 4 weeks. Bariatric Checklist Checklist: Plan: Checklist: EGD: 1. Hiatal hernia: 2. H. Pylori: HgbA1c: Vitamin D: Smoking: Primary care physician referral: Dr. Alfonso Psychiatry clearance: Cardiology clearance: Sleep study: Diet journal: VTE risk score: VTE risk level: Rehab needs at discharge:
== END ==
LOC: BARWHC3 10:11
PROVIDERS: ATTEND Surgery
DX: I10 Essential (primary) hypertension (principal); Z90.49 Acquired absence of other specified parts of digestive tract; Z96.653 Presence of artificial knee joint, bilateral; Z88.0 Allergy status to penicillin; Z79.899 Other long term (current) drug therapy; Z79.633 Long term (current) use of mitotic inhibitor
CPT/HCPCS: 99212

== ENCOUNTER 2023-04-25 06:19 | Day surgery (SDC) | payer MEDICARE, BC ==
[2023-04-25] MEDS ORDERED: MIDAZOLAM 2 MG/2 ML VIAL IV PRN (07:00)
[2023-04-25] MEDS ORDERED: HYDROmorphone 0.5 MG/0.5 ML SYRINGE IVP PRN (07:00)
[2023-04-25] MEDS: LACTATED RINGERS 1,000 ML IV SCH (07:26)
[2023-04-25] MEDS: DEXAMETHASONE SOD PHOSPHATE 4 MG/ML 1 ML VIAL IV ONE (07:32)
[2023-04-25] MEDS: ONDANSETRON 4 MG/2 ML VIAL IVP ONE (07:32)
[2023-04-25] MEDS: MIDAZOLAM 2 MG/2 ML VIAL IVP ONE (08:01)
[2023-04-25] MEDS: fentaNYL (PF) 50 MCG/ML 2 ML AMP IVP ONE (08:01)
[2023-04-25] MEDS ORDERED: ROPIVACAINE 5 MG/ML 30 ML VIAL ONE (08:43)
[2023-04-25] MEDS ORDERED: fentaNYL (PF) 50 MCG/ML 2 ML AMP ONE (08:43)
[2023-04-25] MEDS ORDERED: PHENYLEPHRINE-0.9% NACL SYG 1,000 MCG/10 ML SYRINGE ONE (08:43)
[2023-04-25] MEDS ORDERED: LIDOCAINE 1% INJ 10MG/ML (20 ML MDV) ONE (08:43)
[2023-04-25] MEDS ORDERED: SODIUM CHLORIDE 0.9% (PF) 10 ML VIAL ONE (08:43)
[2023-04-25] MEDS ORDERED: ePHEDrine 50 MG/ML 1 ML VIAL ONE (08:43)
[2023-04-25] MEDS ORDERED: PROPOFOL 10 MG/ML 20 ML VIAL IV ONE (08:43)
[2023-04-25] MEDS ORDERED: MIDAZOLAM 2 MG/2 ML VIAL ONE (08:43)
[2023-04-25] MEDS: LACTATED RINGERS 1,000 ML IV ONE (09:49)
--- NOTE | 2023-04-25 10:16 | P.OP ---
Date of Procedure: 04/25/23 Preoperative Diagnosis: 1. Hallux rigidus right foot 2. Hammertoe second digit right foot 3. Ganglion cyst right foot Postoperative Diagnosis: 1. Same 2. Same 3. Same Procedure(s) Performed: 1. First metatarsal phalangeal joint arthrodesis right foot 2. Hammertoe correction second digit right foot 3. Excision of ganglion cyst right foot Implants: Arthrex MaxForce plate with associated locking and nonlocking screws Arthrex hammertoe implant Arthrex allograft Anesthesia: YG Surgeon: Edy Dye Estimated Blood Loss (ml): 1 Pathology: none sent Condition: stable Disposition: PACU Description of Procedure: Prior to the patient being brought to the operating room, anesthesia administered a nerve block on the surgical extremity. Then the patient was brought into the operating room and placed on table in the supine position. Timeout was taken to confirm correct patient identifiers, correct lateral surgery, and correct procedure. Once the staff in the room were in agreement with the timeout, the patient was induced and placed under general anesthesia. A well-padded tourniquet was placed on the ankle and then the foot was prepped and draped in the usual manner. The right foot was exsanguinated and the tourniquet inflated to 250 mmHg. Attention was directed over the dorsal aspect of the first metatarsal phalangeal joint, where a linear incision was made between the long extensor tendon and the neurovascular structures. The incision was deepened down to the subcutaneous layer careful to identify, avoid, and retract any neurovascular structures and cauterize any bleeding vessels. Blunt dissection was continued through the subcutaneous layer down to the periosteum and capsule. At that point, the ganglion cyst and ruptured and a clear gelatinous fluid was in the surgical field. The origin of the fluid was traced to a small cyst originating off the small accessory tendon going to the first metatarsal phalangeal joint capsule. The rest of the fluid was evacuated and then a scalpel was used to sharply dissect the hastings of the cyst away and removed from the surgical field. A linear periosteal and capsular incision was made medial to the long extensor tendon. Those tissues were then sharply reflected off of the first metatarsal head and shaft as well as the base of the proximal phalanx. The soft tissue was released around the joint so that the joint could be mobilized and accessed. A guidewire was placed through the central aspect of the first metatarsal head parallel to the long access and within the medullary canal. Appropriate size reamers were used to shape the first metatarsal head. Then a concave reamer was inserted over the guidewire and used to remove the articular cartilage and subchondral bone. The wire was removed was used to aggressively fenestrate the head of the first metatarsal. The guidewire was then inserted at the central aspect of the articular surface of the base of the proximal phalanx. The wire was advanced parallel to the long access and within the medullary canal. The convex reamer was then used to remove the articular cartilage and subchondral bone. The guidewire was removed and used to fenestrate the surface. The wound was thoroughly irrigated with antibiotic saline. Arthrex Arthrocell was placed between the arthrodesis segments. A 0 bend first metatarsal phalangeal joint fusion plate was then positioned dorsally over the site. Temporary fixation was used to hold the plate in place. Fluoroscopy was used to check the placement of the plate as well as the joint alignment. Once both positions were satisfactory, a combination of locking and nonlocking screws were placed in the distal part of the plate into the proximal phalanx. The position of the joint and plate were checked again under fluoroscopy. Once both were satisfactory, a wire was placed in the base of the proximal phalanx and across the arthrodesis site to maintain the alignment. The offset drill guide was then placed in the compression slot of the plate. The guide was removed and then the compression device was inserted through the drill hole and engaged with the plate. The compression device was turned to further compress the joint. While holding in compression, another threaded olive wire was used to hold it in place. A drill hole through the proximal compression slot was then made and a nonlocking screw was inserted and tightened until it engaged the plate and provided further compression across the arthrodesis site. A nonlocking screw was then placed in the drill hole in the proximal aspect of the plate closest to the joint line. The final screw was a locking screw placed in the most proximal hole the plate. Final fluoroscopic imaging showed proper placement of all hardware, maintaining correction of the joint, and excellent compression across the arthrodesis site. The temporary fixation wire was removed and the joint thoroughly irrigated with antibiotic saline. Attention was then directed to the second digit, where a linear incision was ma de over the proximal interphalangeal joint. The incision was deepened down to the subcutaneous tissue careful to identify, avoid, and retract any neurovascular structures and cauterize any bleeding vessels. A transverse incision was made to the proximal interphalangeal joint capsule resecting the extensor tendon as well as the collateral ligaments. A sagittal saw was used to resect the proximal phalangeal head perpendicular to the long axis of the proximal phalanx. A Andi was then used to remove the articular cartilage from the base of the middle phalanx. A guidewire for the Arthrex hammertoe implant was used to create a co pilot hole in the proximal phalanx. With the wire in place the drilling was completed down to proper depth. The wire was removed and then placed at the central aspect of the base of middle phalanx and advanced out the distal aspect of the digit. The second drill was then used to create the hole in the middle phalanx for the implant to proper depth. The implant was then placed over the wire and threaded into the middle phalanx done to proper depth. The arms on the proximal portion of the implant were then compressed and then aligned with the drill hole in the proximal phalanx and then impacted into the proximal phalanx. The impactor was placed over the wire and lightly tapped with a mallet to fully seat the arthrodesis site as well as implant. Final fluoroscopic imaging showed rectus alignment of the digit with proper placement of the implant. The wire was advanced to deployed the proximal arms of the implant and then the wire was removed. The first metatarsal phalangeal joint capsule and periosteal tissues were closed with 0 Vicryl. Subcu closure was done with 4-0 Monocryl. And skin closure was done with 4-0 Stratafix in a running subcuticular manner. The extensor tendon of the second digit was repaired with 2-0 Vicryl. Skin closure done with 3-0 nylon. Dermal glue was placed around the incision, and once dried, Steri-Strips are placed across incision. An Arthrex jumpstart dressing was placed directly over the first metatarsal phalangeal joint incision and nonadherent gauze over the second digit. Then a dry sterile dressing was applied to the right foot. The tourniquet was released and capillary refill return to all digits on the right foot. The patient was then placed in a well-padded, well molded plaster posterior mold/sugar tong splint. The ankle was held in neutral position until the splint was dried. Then anesthesia was reversed and the patient was taken recovery with vital signs stable.
[2023-04-25 10:29] VITALS: TEMP 97
[2023-04-25 11:34] VITALS: RESP 18
[2023-04-25 12:05] VITALS: BP 131/78; PULSE 84
--- NOTE | 2023-04-25 15:34 | P.ANPRN ---
Procedure Note - Anesthesia - Nerve Block Performed Right Popliteal Single Time Out Performed: Yes (0800) Date of Procedure: 04/25/23 Procedure Start Time: Procedure Stop Time: : Location of Patient: PreOp Indication: Acute Post-Operative Pain, Requested by Surgeon Specifically requested for management of pain by DrMelvin: Edy Dye Sedation Type: Sedate with meaningful contact maintained Preparation: Sterile Prep Position: Left Lateral Catheter: None Needle Types: Pajunk Needle Gauge: 21 Ultrasound used to visualize needle placement: Yes Ultrasound used to observe medication spread: Yes Injectate: 0.5% Ropivacaine (see comment for volume) (15cc + 10cc nacl pf) Blood Aspirated: No Pain Paresthesia on Injection Noted: No Resistance on Injection: Normal Image Stored and Saved: Yes Events: Uneventful and Well Tolerated
--- NOTE | 2023-04-25 15:35 | P.ANPRN ---
Procedure Note - Anesthesia - Nerve Block Performed Right Adductor Canal Single Time Out Performed: Yes (0800) Date of Procedure: 04/25/23 Procedure Start Time: 08:03 Procedure Stop Time: 08:04 Location of Patient: PreOp Indication: Acute Post-Operative Pain, Requested by Surgeon Specifically requested for management of pain by DrMelvin: Edy Dye Sedation Type: Sedate with meaningful contact maintained Preparation: Sterile Prep Position: Supine Catheter: None Needle Types: [place]ajunk Needle Gauge: 21 Ultrasound used to visualize needle placement: Yes Ultrasound used to observe medication spread: Yes Injectate: 0.5% Ropivacaine (see comment for volume) (15cc + 10cc nacl pf) Blood Aspirated: No Pain Paresthesia on Injection Noted: No Resistance on Injection: Normal Image Stored and Saved: Yes Events: Uneventful and Well Tolerated
== END 2023-04-25 12:20 | disposition home or self-care (01) ==
LOC: OR 06:19
PROVIDERS: ATTEND Podiatrist
DX: M20.21 Hallux rigidus, right foot (principal); M20.41 Other hammer toe(s) (acquired), right foot; M67.471 Ganglion, right ankle and foot; I10 Essential (primary) hypertension; E78.5 Hyperlipidemia, unspecified; Z90.49 Acquired absence of other specified parts of digestive tract; Z98.890 Other specified postprocedural states; Z82.49 Family history of ischemic heart disease and other diseases of the circulatory system; Z79.899 Other long term (current) drug therapy
CPT/HCPCS: 64447; 64445; 28750; 28285; 28090; C1713; C1734; J2250; J1100; J0690; J2405; J2001; J3010; J2795; J2704; J2371